=== PATIENT | female | born 1975 | race African-American/Black ===

== ENCOUNTER 2020-11-05 08:51 | Outpatient (CLI) | payer OTHER | END 2020-11-05 18:58 | disposition home or self-care (01) | LOC: RAD 08:51 | PROVIDERS: ATTEND Family Medicine | DX: M25.561 Pain in right knee (principal); M25.531 Pain in right wrist ==

== ENCOUNTER 2020-11-07 16:26 | Outpatient (CLI) | payer OTHER | END 2020-11-07 21:55 | disposition home or self-care (01) | LOC: RAD 16:26 | PROVIDERS: ATTEND Family Medicine | DX: M54.2 Cervicalgia (principal) ==